=== PATIENT | male | born 1975 | race Caucasian/White ===

== ENCOUNTER 2016-06-19 08:01 | Inpatient (IN) | payer OTHER ==
[~2016-06-19] VITALS: Ht 177.8 cm; Wt 70.5 kg
[2016-06-19] VITALS (8 sets, daily range): BP systolic 109–146; BP diastolic 63–98; PULSE 109–144; RESP 16–26; TEMP 97.7–98.6; O2SAT 95–100
[2016-06-19] MEDS ORDERED: SODIUM CHLOR 0.9% 1000 ML INJ 1,000 ML IV ONE ×2 (08:25→08:55)
[2016-06-19] MEDS ORDERED: SODIUM CHLORIDE 0.9% FLUSH 5 ML FLUSH IVF PRN (08:30)
[2016-06-19 08:32] LABS: BLOOD GAS VENOUS BASE EXCESS -25.7 mmol/L (-2-2); BLOOD GAS VENOUS HCO3 4 mmol/L (22-26); BLOOD GAS VENOUS O2 CONTENT 16.7 Vol % (9.0-17.0); BLOOD GAS VENOUS O2 HGB SAT 71 % (70-76); BLOOD GAS VENOUS PCO2 18 mmHg (44-48); BLOOD GAS VENOUS PO2 49 mmHg (35-40); BLOOD GAS VENOUS pH 6.95 (7.360-7.400); TEMP CORR TO 98.6
[2016-06-19 08:33] LABS: CRITICAL VALUE YES; DRAW SITE I.V.; FIO2 21 %; OXYGEN DEVICE ROOM AIR; STAT YES
--- NOTE | 2016-06-19 08:33 | PD ---
HPI Chief Complaint: Diabetic Time Seen by Provider: 08:17 Travel History International Travel<30 days: No Contact w/Intl Traveler<30days: No Traveled to known affect area: No History of Present Illness HPI The patient is a 41-year-old male who presents to the emergency department for nausea and vomiting. The patient has a 10 year history of insulin-dependent diabetes, normally takes Lantus 40 units daily. The patient has been out of his insulin for the last 5 days, has been unable to see a physician to have his insulin refilled. The patient recently moved to the area and is [facility] to [facility] a [facility] or [facility]. The patient states his symptoms are several days ago nausea and vomiting, he now notes generalized weakness, increased respiratory rate, and generalized fatigue. The patient does have a previous history of DKA. The patient denies any fever, chills, or sweats. Patient also complains of "[place] ". PFSH Past Medical History Diabetes: Yes Patient Takes Glucophage: No Past Surgical History Surgical History: No Previous Surgery Social History Alcohol Use: Yes (6pk beer daily) Tobacco Use: No Substance Use: No Allergies-Medications (Allergen,Severity, Reaction): Coded Allergies: No Known Allergies (Unverified , 06/19/16) Reported Meds & Prescriptions Reported Meds & Active Scripts Active Reported Lantus Inj (Insulin Glargine) 1,000 Unit/10 Ml Vial 40 Units SQ HS Review of Systems Except as stated in HPI: all other systems reviewed are Neg General / Constitutional: No: Fever Cardiovascular: Positive: Tachycardia, No: Chest Pain or Discomfort Respiratory: Positive: Other (increased respiratory rate), No: Shortness of Breath Gastrointestinal: Positive: Nausea, Vomiting, No: Abdominal Pain Musculoskeletal: Positive: Weakness Neurologic: Positive: Weakness Physical Exam Narrative GENERAL: Awake, alert, 41-year-old male appears his stated age and has [place]ul respirations. SKIN: Warm and dry. HEAD: Atraumatic. Normocephalic. EYES: Pupils equal and round. No scleral icterus. No injection or drainage. ENT: No nasal bleeding or discharge. Dry mucous membranes. Ketotic breath. NECK: Trachea midline. No JVD. CARDIOVASCULAR: Regular, tachycardic with a heart rate of 140. RESPIRATORY: Tachypnea with deep inspirations. GASTROINTESTINAL: Abdomen soft, non-tender, nondistended. No rebound tenderness. MUSCULOSKELETAL: No obvious deformities. No clubbing. No cyanosis. No edema. NEUROLOGICAL: Awake and alert. No obvious cranial nerve deficits. Motor grossly within normal limits. Normal speech. PSYCHIATRIC: Appropriate mood and affect; insight and judgment normal. Data Data Last Documented VS Vital Signs Date Time Temp Pulse Resp B/P Pulse Ox O2 Delivery O2 Flow Rate FiO2 06/19/16 09:25 144 24 146/86 100 Room Air 06/19/16 08:04 97.7 Orders Electrocardiogram (06/19/16 08:25) Complete Blood Count With Diff (06/19/16 08:25) Comprehensive Metabolic Panel (06/19/16 08:25) Magnesium (Mg) (06/19/16 08:25) Beta Hydroxybutyrate (Acetone) (06/19/16 08:25) Urinalysis - C+S If Indicated (06/19/16 08:25) Blood Gas Venous (Vbg) (06/19/16 08:25) Blood Glucose (06/19/16 08:25) Blood Glucose (06/19/16 09:25) Ecg Monitoring (06/19/16 08:25) Iv Access Insert/Monitor (06/19/16 08:25) Oximetry (06/19/16 08:25) NPO (06/19/16 08:25) Sodium Chlor 0.9% 1000 Ml Inj (Ns 1000 M (06/19/16 08:25) Sodium Chlor 0.9% 1000 Ml Inj (Ns 1000 M (06/19/16 08:55) Sodium Chloride 0.9% Flush (Ns Flush) (06/19/16 08:30) Transmitter Supervisor / Telemetry PRATEEK.Q8H (06/19/16 09:47) ^ Insert Iv (06/19/16 09:47) Diet Npo (06/19/16 Breakfast) Sodium Chlor 0.9% 1000 Ml Inj (Ns 1000 M (06/19/16 09:47) Dext 5%-Nacl 0.9% 1000 Ml Inj (D5w-Ns 10 (06/19/16 09:47) Insulin Human Regular Inj (Novolin R Inj (06/19/16 10:00) Insulin Regular (Iv Infusion) (Novolin R (06/19/16 10:00) Potassium Chlor 40 Meq Premix (Kcl 40 Me (06/19/16 10:00) Potassium Chlor 40 Meq Premix (Kcl 40 Me (06/19/16 10:00) Potassium Chlor 20 Meq Premix (Kcl 20 Me (06/19/16 10:00) Potassium Chlor 20 Meq Premix (Kcl 20 Me (06/19/16 10:00) Potassium Chlor 20 Meq Premix (Kcl 20 Me (06/19/16 10:00) Potassium Chlor 20 Meq Premix (Kcl 20 Me (06/19/16 10:00) Potassium Chlor 20 Meq Premix (Kcl 20 Me (06/19/16 10:00) Potassium Chlor 20 Meq Premix (Kcl 20 Me (06/19/16 10:00) Sodium Bicarbonate 8.4% Inj (Sodium Bica (06/19/16 10:00) Sodium Bicarbonate 8.4% Inj (Sodium Bica (06/19/16 10:00) Sodium Phosphate Inj (Sodium Phosphate I (06/19/16 10:00) Hemoglobin (Hgb) A1c (06/19/16 09:47) Basic Metabolic Panel (Bmp) (06/19/16 14:47) Basic Metabolic Panel (Bmp) (06/19/16 20:47) Basic Metabolic Panel (Bmp) (06/20/16 02:47) Basic Metabolic Panel (Bmp) (06/20/16 08:47) Magnesium (Mg) (06/19/16 14:47) Magnesium (Mg) (06/19/16 20:47) Magnesium (Mg) (06/20/16 02:47) Magnesium (Mg) (06/20/16 08:47) Phosphorus (Po4) (06/19/16 14:47) Phosphorus (Po4) (06/19/16 20:47) Phosphorus (Po4) (06/20/16 02:47) Phosphorus (Po4) (06/20/16 08:47) Beta Hydroxybutyrate (Acetone) (06/19/16 20:47) Beta Hydroxybutyrate (Acetone) (06/20/16 08:47) Sodium Bicarbonate 8.4% Inj (Sodium Bica (06/19/16 10:00) Admit Order (Ed Use Only) (06/19/16 09:59) Labs Laboratory Tests Test 06/19/16 06/19/16 06/19/16 08:27 08:35 09:15 Blood Gas Puncture Site I.V. Blood Gas Patient Temperature 98.6 Venous Blood pH 6.95 Venous Blood Partial Pressure 18 mmHg CO2 Venous Blood Partial Pressure 49 mmHg O2 Venous Blood HCO3 4 mmol/L Venous Blood Oxygen Saturation 71 % Venous Blood Oxygen Content 16.7 Vol % Venous Blood Base Excess -25.7 mmol/L Oxygen Delivery Device ROOM AIR Blood Gas Inspired Oxygen 21 % White Blood Count 16.5 TH/MM3 Red Blood Count 5.17 MIL/MM3 Hemoglobin 15.8 GM/DL Hematocrit 50.4 % Mean Corpuscular Volume 97.4 FL Mean Corpuscular Hemoglobin 30.5 PG Mean Corpuscular Hemoglobin 31.3 % Concent Red Cell Distribution Width 14.5 % Platelet Count 272 TH/MM3 Mean Platelet Volume 9.8 FL Neutrophils (%) (Auto) 81.4 % Lymphocytes (%) (Auto) 9.9 % Monocytes (%) (Auto) 8.0 % Eosinophils (%) (Auto) 0.1 % Basophils (%) (Auto) 0.6 % Neutrophils # (Auto) 13.4 TH/MM3 Lymphocytes # (Auto) 1.6 TH/MM3 Monocytes # (Auto) 1.3 TH/MM3 Eosinophils # (Auto) 0.0 TH/MM3 Basophils # (Auto) 0.1 TH/MM3 CBC Comment DIFF FINAL Differential Comment Sodium Level 129 MEQ/L Potassium Level 4.9 MEQ/L Chloride Level 90 MEQ/L Carbon Dioxide Level LESS THAN 5.0 MEQ/L Anion Gap 34 MEQ/L Blood Urea Nitrogen 22 MG/DL Creatinine 1.68 MG/DL Estimat Glomerular Filtration 45 ML/MIN Rate Random Glucose 505 MG/DL Calcium Level 8.2 MG/DL Magnesium Level 2.5 MG/DL Total Bilirubin 0.4 MG/DL Aspartate Amino Transf 19 U/L (AST/SGOT) Alanine Aminotransferase 40 U/L (ALT/SGPT) Alkaline Phosphatase 123 U/L Total Protein 7.9 GM/DL Albumin 4.0 GM/DL B-Hydroxybutyrate 16.69 MMOL/L Urine Color LIGHT-YELLOW Urine Turbidity CLEAR Urine pH 5.0 Urine Specific [place] 1.018 Urine Protein 30 mg/dL Urine Glucose (UA) 1000 mg/dL Urine Ketones 150 mg/dL Urine Occult Blood TRACE Urine Nitrite NEG Urine Bilirubin NEG Urine Urobilinogen LESS THAN 2.0 MG/DL Urine Leukocyte Esterase NEG Urine WBC LESS THAN 1 /hpf Urine Squamous Epithelial <1 /hpf Cells Urine Bacteria RARE /hpf Urine Hyaline Casts 1 /lpf Urine Mucus FEW /lpf Microscopic Urinalysis Comment CULT NOT INDICATED MDM Medical Decision Making Medical Screen Exam Complete: Yes Emergency Medical Condition: Yes Medical Record Reviewed: Yes Interpretation(s) VBG reveals pH 6.954, PCO2 18.4, bicarbonate 3.9, base excess - 25.7 EKG reveals sinus tachycardia with a heart rate of 141. Wavy baseline. Differential Diagnosis Differential diagnosis includes diabetic ketoacidosis, hyperosmolar not ketosis , dehydration, electrolyte abnormality, insulin deficiency, noncompliance. Narrative Course IV was established, labs are drawn and sent, and the patient was placed on cardiac telemetry monitoring and continuous pulse oximetry monitoring. EKG was ordered and interpreted. The patient was administered 2 L of IV fluids. Accu- Chek at bedside was 491. VBG and beta hydroxy were sent to lab. The ABG reveals a pH is 6.954 PCO2 of 18.4 and bicarbonate 3.9, consistent with metabolic acidosis, most likely DKA. Patient's anion gap is elevated at 34. Bicarbonate was less than 5, consistent with DKA. The patient was given a bolus of insulin 6 units intravenously and then placed on an insulin drip. The patient was also administered bicarbonate. I discussed the patient with the on- call university administrator, Dr. Corado, who agrees with admission. The patient will be admitted to the intensive care unit. Critical Care Narrative Aggregate critical care time was 40 minutes. Time to perform other separately billable procedures was not included in the critical care time. My time did not include minutes spent treating any other patients simultaneously or on activities that did not directly contribute to the patient's treatment. The services I provided to this patient were to treat and/or prevent clinically significant deterioration that could result in: Dehydration, arrhythmia, diabetic coma, respiratory arrest. I provided critical care services requiring my management, as noted below: Chart data review, documentation time, medication orders and management, vital sign assessments/reviewing monitor data, ordering and reviewing lab tests, ordering and interpreting/reviewing x-rays and diagnostic studies, care of the patient and discussion of the patient with the admitting physicians. Physician Communication Physician Communication I discussed the patient with the on-call university administrator, Dr. Corado, who agrees with admission. Diagnosis Primary Impression: DKA (diabetic ketoacidoses) Qualified Code: E10.10 - Diabetic ketoacidosis without coma associated with type 1 diabetes mellitus Condition: Critical Fox Galeana MD Jun 19, 2016 08:33
[2016-06-19] MEDS ORDERED: LANTUS2P SQ (08:34)
[2016-06-19 08:59] LABS: AUTOMATED NEUTROPHIL # 13.4 TH/MM3 (1.8-7.7); BASOPHIL # 0.1 TH/MM3 (0-0.2); BASOPHIL % 0.6 % (0.0-2.0); EOSINOPHIL % 0.1 % (0.0-4.0); HEMATOCRIT 50.4 % (39.0-51.0); HEMO FLAGS DIFF FINAL; LYMPH % 9.9 % (9.0-44.0); LYMPHOCYTE # 1.6 TH/MM3 (1.0-4.8); MEAN CELL VOLUME 97.4 FL (80.0-100.0); MEAN CORPUSCULAR HEMOGLOBIN 30.5 PG (27.0-34.0); MEAN CORPUSCULAR HGB CONC 31.3 % (32.0-36.0); NEUT % 81.4 % (16.0-70.0); PLATELET COUNT 272 TH/MM3 (150-450); RED BLOOD COUNT 5.17 MIL/MM3 (4.50-5.90); RED CELL DISTRIBUTION WIDTH 14.5 % (11.6-17.2); WHITE BLOOD COUNT 16.5 TH/MM3 (4.0-11.0)
[2016-06-19 09:18] LABS: ANION GAP 34 MEQ/L (5-15)
[2016-06-19 09:29] LABS: ALKALINE PHOSPHATASE 123 U/L (45-117); ALT (GPT) 40 U/L (12-78); AST (GOT) 19 U/L (15-37); BETA-HYDROXYBUTYRATE 16.69 MMOL/L (0.00-0.39); BICARBONATE LESS THAN 5.0 MEQ/L (21.0-32.0); BLOOD UREA NITROGEN 22 MG/DL (7-18); CHLORIDE 90 MEQ/L (98-107); GLOMERULAR FILTRATION RATE 45 ML/MIN (>89); MAGNESIUM 2.5 MG/DL (1.5-2.5); POTASSIUM 4.9 MEQ/L (3.5-5.1); SODIUM (NA) 129 MEQ/L (136-145)
[2016-06-19 09:33] LABS: TOTAL BILIRUBIN ADULT 0.4 MG/DL (0.2-1.0)
[2016-06-19] MEDS ORDERED: SODIUM CHLOR 0.9% 1000 ML INJ 1,000 ML IV SCH ×2 (09:47→10:22)
[2016-06-19] MEDS ORDERED: DEXT 5%-NACL 0.9% 1000 ML INJ 1,000 ML IV SCH (09:47)
[2016-06-19 10:00] LABS: BACTERIA, URINE RARE /hpf; BLOOD, URINE TRACE (NEG); COMMENT (UR) CULT NOT INDICATED; CULTURE IF INDICATED CULT NOT INDICATED; GLUCOSE,URINE 1000 mg/dL (NEG); HYALINE CAST, URINE 1 /lpf (RARE); KETONE, URINE 150 mg/dL (NEG); MUCUS URINE FEW /lpf (OCC); NITRITE,URINE NEG (NEG); SQUAMOUS EPITHELIAL CELL URINE <1 /hpf (0-5); URINE COLOR LIGHT-YELLOW (YELLW/STRAW)
[2016-06-19] MEDS ORDERED: SODIUM BICARBONATE 8.4% SOLN 50 MEQ/50 ML VIAL IV PRN ×4 (10:00→10:30)
[2016-06-19] MEDS ORDERED: POTASSIUM CHLOR 40 MEQ PREMIX 100 ML IV PRN ×4 (10:00→10:30)
[2016-06-19] MEDS ORDERED: INSULIN REGULAR (IV INFUSION) 100 UNITS in SODIUM CHLORIDE 0.9% INJ 99 ML IV SCH (10:00)
[2016-06-19] MEDS ORDERED: SODIUM BICARBONATE 8.4% INJ 50 MEQ/50 ML SYR IV PUSH ONE (10:00)
[2016-06-19] MEDS ORDERED: INSULIN HUMAN REGULAR 1,000 UNITS/10 ML VIAL IV PUSH ONE ×2 (10:00→10:30)
[2016-06-19] MEDS ORDERED: POTASSIUM CHLOR 20 MEQ PREMIX 100 ML IV PRN ×12 (10:00→10:30)
[2016-06-19] MEDS ORDERED: SODIUM PHOSPHATE INJ 15 MMOL in SODIUM CHLORIDE 0.9% INJ 100 ML IV PRN ×2 (10:00→10:30)
[2016-06-19] MEDS ORDERED: SODIUM CHLORIDE 0.9% FLUSH 5 ML FLUSH IV FLUSH PRN (10:30)
[2016-06-19] MEDS ORDERED: ONDANSETRON HCL 4 MG/2 ML VIAL IV PRN (10:30)
[2016-06-19] MEDS ORDERED: CHLORHEXIDINE GLUCONATE 2 % 1 PACK (2 CLOTHS) TOP PRN (10:30)
[2016-06-19] MEDS ORDERED: MISCELLANEOUS NURSING INFORMATION XX SCH ×2 (10:30)
[2016-06-19] MEDS ORDERED: RESP: ALBUTEROL 2.5 MG/IPRATROPIUM 0.5 MG NEB (PRN) INH (10:30)
[2016-06-19] MEDS ORDERED: ACETAMINOPHEN 325 MG TAB PO PRN (10:30)
--- NOTE | 2016-06-19 10:53 | HHI.HP ---
HPI Service Critical Care Medicine Primary Care Physician No Primary Care Physician Admission Diagnosis diabetic ketoacidosis, dehydration, acute renal failure Diagnosis: Travel History International Travel<30 Days: No Contact w/Intl Traveler <30 Da: No Traveled to Known Affected Are: No History of Present Illness The is a 41-year-old male that presented to the ED with a history of nausea and vomiting. 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 The patient did not take his insulin for approximately the last 5 days, has been unable to see a physician to have his insulin refilled. The patient has recently relocated to the [facility], is unable to obtain an appointment at the [place] facility and was scheduled to see his primary care physician tomorrow. The patient states his symptoms are several days ago nausea and vomiting, he now notes generalized weakness, increased respiratory rate, and generalized fatigue. The patient does have a previous history of DKA. Critical care medicine is consulted for management and treatment. History PFSH Past Medical History Diabetes: Yes Patient Takes Glucophage: No Past Surgical History Surgical History: No Previous Surgery Social History Alcohol Use: Yes (6pk beer daily) Tobacco Use: No Substance Use: No Allergies-Medications Allergies-Medications (Allergen,Severity, Reaction): Coded Allergies: No Known Allergies (Unverified , 06/19/16) Reported Meds & Prescriptions Reported Meds & Active Scripts Active Reported Lantus Inj (Insulin Glargine) 1,000 Unit/10 Ml Vial 40 Units SQ HS ROS Review of Systems Except as stated in HPI: all other systems reviewed are Neg General / Constitutional: No: Fever Cardiovascular: Positive: Tachycardia, No: Chest Pain or Discomfort Respiratory: Positive: Other (increased respiratory rate), No: Shortness of Breath Gastrointestinal: Positive: Nausea, Vomiting, No: Abdominal Pain Musculoskeletal: Positive: Weakness Neurologic: Positive: Weakness Physical Exam Vital Signs Vital Signs Date Time Temp Pulse Resp B/P Pulse Ox O2 Delivery O2 Flow Rate FiO2 06/19/16 09:25 144 24 146/86 100 Room Air 06/19/16 08:04 97.7 141 26 139/98 97 Physical Exam GENERAL: This is a well-nourished well-developed male in moderate distress, tachypnea and tachycardic HR 150's SKIN: Warm and dry. HEAD: Atraumatic. Normocephalic. EYES: Pupils equal and round. No scleral icterus. No injection or drainage. ENT: No nasal bleeding or discharge. Mucous membranes uvula midline NECK: Trachea midline. No JVD. CARDIOVASCULAR: Tachycardic, regular rhythm. RESPIRATORY: No accessory muscle use. Clear to auscultation. Breath sounds equal bilaterally. Tachypnea,RR 30's GASTROINTESTINAL: Abdomen soft, non-tender, nondistended. No guarding. Normoactive bowel sounds MUSCULOSKELETAL: Extremities without clubbing, cyanosis, or edema. No obvious deformities. NEUROLOGICAL: Awake and alert. RASS 0. No gross focal/sensory deficits. Follows commands in all 4 extremities. Laboratory Laboratory Tests Test 06/19/16 06/19/16 06/19/16 08:27 08:35 09:15 Blood Gas Puncture Site I.V. Blood Gas Patient Temperature 98.6 Venous Blood pH 6.95 Venous Blood Partial Pressure 18 CO2 Venous Blood Partial Pressure 49 O2 Venous Blood HCO3 4 Venous Blood Oxygen Saturation 71 Venous Blood Oxygen Content 16.7 Venous Blood Base Excess -25.7 Oxygen Delivery Device ROOM AIR Blood Gas Inspired Oxygen 21 White Blood Count 16.5 Red Blood Count 5.17 Hemoglobin 15.8 Hematocrit 50.4 Mean Corpuscular Volume 97.4 Mean Corpuscular Hemoglobin 30.5 Mean Corpuscular Hemoglobin 31.3 Concent Red Cell Distribution Width 14.5 Platelet Count 272 Mean Platelet Volume 9.8 Neutrophils (%) (Auto) 81.4 Lymphocytes (%) (Auto) 9.9 Monocytes (%) (Auto) 8.0 Eosinophils (%) (Auto) 0.1 Basophils (%) (Auto) 0.6 Neutrophils # (Auto) 13.4 Lymphocytes # (Auto) 1.6 Monocytes # (Auto) 1.3 Eosinophils # (Auto) 0.0 Basophils # (Auto) 0.1 CBC Comment DIFF FINAL Differential Comment Sodium Level 129 Potassium Level 4.9 Chloride Level 90 Carbon Dioxide Level LESS THAN 5.0 Anion Gap 34 Blood Urea Nitrogen 22 Creatinine 1.68 Estimat Glomerular Filtration 45 Rate Random Glucose 505 Calcium Level 8.2 Magnesium Level 2.5 Total Bilirubin 0.4 Aspartate Amino Transf 19 (AST/SGOT) Alanine Aminotransferase 40 (ALT/SGPT) Alkaline Phosphatase 123 Total Protein 7.9 Albumin 4.0 B-Hydroxybutyrate 16.69 Urine Color LIGHT-YELLOW Urine Turbidity CLEAR Urine pH 5.0 Urine Specific [place] 1.018 Urine Protein 30 Urine Glucose (UA) 1000 Urine Ketones 150 Urine Occult Blood TRACE Urine Nitrite NEG Urine Bilirubin NEG Urine Urobilinogen LESS THAN 2.0 Urine Leukocyte Esterase NEG Urine WBC LESS THAN 1 Urine Squamous Epithelial <1 Cells Urine Bacteria RARE Urine Hyaline Casts 1 Urine Mucus FEW Microscopic Urinalysis Comment CULT NOT INDICATED Result Diagram: 06/19/1683406/19/16834 Septic Shock Reassessment Lungs: Clear Skin: Warm Peripheral Pulses: Bounding Right Radial Bounding Left Radial Bounding Right Dorsalis Pedis Bounding Left Dorsalis Pedis Capillary Refill: Brisk Assessment and Plan Assessment and Plan Neurologic: Back pain/ Myalgia Noncompliance of medication regimen GCS 15 Acetaminophen 650 mg when necessary Respiratory: Tachypnea secondary to DKA Maintain O2 sat greater than 92% O2 sat currently 100% on room air, will supplement oxygen with a 1-4 L nasal cannula Incentive spirometry while awake Cardiovascular: Sinus tachycardia secondary to hypovolemia secondary to DKA Bolused with 2 L in the ED Bolused with 2 L ICU Telemetry Obtain EKG Renal: Prerenal azotemia secondary to dehydration Creatinine 1.68, BUN 22 No Cummings at this time -- Strict I/Os FEN/GI: Dehydration Maintain nothing by mouth status for now Continue IV 0.9 sodium chloride at 250 cc/hour per DKA protocol Zofran for nausea every 6 hours Protonix IV GI prophylaxis Heme/ID: Leukocytosis WBC 16.5 Obtain blood culture, urine culture Monitor CBC Hemoglobin stable Endocrine: IDDM DKA Begin insulin infusion follow DKA protocol will transition when anion gap closes Supplement potassium per DKA protocol Continue normal saline 250 cc/hr Repeat VBG-sodium bicarbonate per protocol, given 100 mEq in the ED -- SSI Prophylaxis: GI Prophylaxis Protonix DVT Prophylaxis -- SCDs Heparin SQ BID Lines: PIV 's Dispo: This patient remains critically ill with one or more organ systems which are or may become a threat to life. I have spent in excess of 47 minutes discontinuously in the care and management of this patient. This time is exclusive of procedures, and includes, but is not limited to, evaluation of the patient, review of the medical record, discussions with family, consultants, nursing staff, or respiratory therapy, and documentation in the medical record. Code Status Full Discussed Condition With ED RN, patient and patient's significant other Young,Margaret Wall MD Jun 19, 2016 10:53
[2016-06-19] MEDS: SODIUM CHLOR 0.9% 1000 ML INJ 1,000 ML IV SCH ×2 (11:00→12:07)
[2016-06-19] MEDS: HEPARIN SODIUM - SQ 10,000 UNITS/ML VIAL SQ SCH ×2 (11:24→19:00)
[2016-06-19 11:38] LABS: BLOOD GAS VENOUS BASE EXCESS -24.3 mmol/L (-2-2); BLOOD GAS VENOUS HCO3 4 mmol/L (22-26); BLOOD GAS VENOUS O2 CONTENT 16.5 Vol % (9.0-17.0); BLOOD GAS VENOUS O2 HGB SAT 83 % (70-76); BLOOD GAS VENOUS PCO2 15 mmHg (44-48); BLOOD GAS VENOUS PO2 54 mmHg (35-40); BLOOD GAS VENOUS pH 7.08 (7.360-7.400); TEMP CORR TO 98.6
[2016-06-19 11:39] LABS: CRITICAL VALUE YES; DRAW SITE I.V.; FIO2 21 %; OXYGEN DEVICE ROOM AIR; STAT YES
[2016-06-19] MEDS: DEXT 5%-NACL 0.9% 1000 ML INJ 1,000 ML IV SCH (13:06)
[2016-06-19 14:16] LABS: BICARBONATE 7.8 MEQ/L (21.0-32.0); CALCIUM-PROTEIN CORRECTED 7.7 MG/DL (8.5-10.1); POTASSIUM 4.5 MEQ/L (3.5-5.1); TOTAL BILIRUBIN ADULT 0.4 MG/DL (0.2-1.0)
[2016-06-19 15:07] LABS: MAGNESIUM 1.8 MG/DL (1.5-2.5)
[2016-06-19 16:35] LABS: BLOOD GAS VENOUS BASE EXCESS -22.3 mmol/L (-2-2); BLOOD GAS VENOUS HCO3 6 mmol/L (22-26); BLOOD GAS VENOUS O2 CONTENT 14.1 Vol % (9.0-17.0); BLOOD GAS VENOUS O2 HGB SAT 79 % (70-76); BLOOD GAS VENOUS PCO2 19 mmHg (44-48); BLOOD GAS VENOUS PO2 47 mmHg (35-40); BLOOD GAS VENOUS pH 7.11 (7.360-7.400); TEMP CORR TO 98.6
[2016-06-19 16:36] LABS: CRITICAL VALUE YES; DRAW SITE VENOUS LINE; FIO2 21 %; STAT YES
[2016-06-19] MEDS: RESP: ALBUTEROL 2.5 MG/IPRATROPIUM 0.5 MG NEB (SCH) INH ×2 (16:50→21:05)
[2016-06-19] MEDS: INSULIN REGULAR (IV INFUSION) 100 UNITS in SODIUM CHLORIDE 0.9% INJ 99 ML IV SCH (17:55)
[2016-06-19 22:08] LABS: ANION GAP 17 MEQ/L (5-15); BETA-HYDROXYBUTYRATE 6.81 MMOL/L (0.00-0.39); BICARBONATE 9.8 MEQ/L (21.0-32.0); BLOOD UREA NITROGEN 10 MG/DL (7-18); CHLORIDE 111 MEQ/L (98-107); GLOMERULAR FILTRATION RATE 69 ML/MIN (>89); MAGNESIUM 1.8 MG/DL (1.5-2.5); POTASSIUM 3.9 MEQ/L (3.5-5.1); SODIUM (NA) 138 MEQ/L (136-145)
[2016-06-19 22:10] LABS: HEMOGLOBIN A1a 1.4 %; HEMOGLOBIN Ao 77.1 %; HEMOGLOBIN F 1.6 %; HEMOGLOBIN LA1C 2.7 %; HEMOGLOBIN P3 4.9 %
[2016-06-19 22:35] LABS: CALCIUM-PROTEIN CORRECTED 7.7 MG/DL (8.5-10.1)
[2016-06-20] VITALS (11 sets, daily range): BP systolic 94–120; BP diastolic 55–74; PULSE 91–128; RESP 18–22; TEMP 98.2–100; O2SAT 98–100
[2016-06-20] MEDS: CHLORHEXIDINE GLUCONATE 2 % 1 PACK (2 CLOTHS) TOP SCH (04:00)
[2016-06-20 04:12] LABS: BICARBONATE 13.5 MEQ/L (21.0-32.0); MAGNESIUM 1.6 MG/DL (1.5-2.5); POTASSIUM 3.5 MEQ/L (3.5-5.1)
[2016-06-20 04:28] LABS: CALCIUM-PROTEIN CORRECTED 8.1 MG/DL (8.5-10.1)
[2016-06-20] MEDS: RESP: ALBUTEROL 2.5 MG/IPRATROPIUM 0.5 MG NEB (SCH) INH ×4 (04:37→21:04)
[2016-06-20] MEDS: DEXT 5%-NACL 0.9% 1000 ML INJ 1,000 ML IV SCH ×3 (05:21→17:06)
[2016-06-20] MEDS: PANTOPRAZOLE SODIUM 40 MG VIAL IV SCH (09:00)
[2016-06-20 12:10] LABS: BICARBONATE 14.2 MEQ/L (21.0-32.0); MAGNESIUM 1.8 MG/DL (1.5-2.5); POTASSIUM 3.2 MEQ/L (3.5-5.1)
[2016-06-20] MEDS: INSULIN REGULAR (IV INFUSION) 100 UNITS in SODIUM CHLORIDE 0.9% INJ 99 ML IV SCH (12:16)
[2016-06-20] MEDS: SODIUM CHLORIDE 0.9% FLUSH 5 ML FLUSH IV FLUSH SCH (12:17)
[2016-06-20 12:37] LABS: BETA-HYDROXYBUTYRATE 6.56 MMOL/L (0.00-0.39)
[2016-06-20] MEDS ORDERED: POTASSIUM CHLORIDE 25 MEQ EFFERVESCENT TAB PO ONE ×2 (13:30→13:45)
[2016-06-20 13:36] LABS: AUTOMATED NEUTROPHIL # 3.5 TH/MM3 (1.8-7.7); BASOPHIL % 0.5 % (0.0-2.0); EOSINOPHIL % 0.3 % (0.0-4.0); HEMATOCRIT 36.7 % (39.0-51.0); HEMO FLAGS DIFF FINAL; LYMPH % 22.6 % (9.0-44.0); LYMPHOCYTE # 1.2 TH/MM3 (1.0-4.8); MEAN CELL VOLUME 89.7 FL (80.0-100.0); MEAN CORPUSCULAR HEMOGLOBIN 30.2 PG (27.0-34.0); MEAN CORPUSCULAR HGB CONC 33.6 % (32.0-36.0); MONO % 9.1 % (0.0-8.0); NEUT % 67.5 % (16.0-70.0); PLATELET COUNT 137 TH/MM3 (150-450); RED BLOOD COUNT 4.09 MIL/MM3 (4.50-5.90); RED CELL DISTRIBUTION WIDTH 14.3 % (11.6-17.2); WHITE BLOOD COUNT 5.1 TH/MM3 (4.0-11.0)
[2016-06-20 13:53] LABS: MAGNESIUM 1.7 MG/DL (1.5-2.5)
[2016-06-20 14:23] LABS: BLOOD GAS VENOUS BASE EXCESS -9.5 mmol/L (-2-2); BLOOD GAS VENOUS HCO3 14 mmol/L (22-26); BLOOD GAS VENOUS O2 CONTENT 15.3 Vol % (9.0-17.0); BLOOD GAS VENOUS O2 HGB SAT 92 % (70-76); BLOOD GAS VENOUS PCO2 24 mmHg (44-48); BLOOD GAS VENOUS PO2 52 mmHg (35-40); TEMP CORR TO 98.6
[2016-06-20 14:24] LABS: CRITICAL VALUE YES; DRAW SITE VENOUS; FIO2 21 %; STAT YES
--- NOTE | 2016-06-20 14:48 | EKG ---
Date Performed: 06/19/2016 Time Performed: 08:51:31 PTAGE: 41 years EKG: SINUS TACHYCARDIA WITH SHORT MO INTERVAL, POSSIBLE ATRIAL FLUTTER MODERATE ST DEPRESSION AB NORMAL ECG CANNOT RULE OUT ISCHEMIA Clinical correlation is strongly recommended NO PREVIOUS TRACING DOCTOR: Jovan Vázquez Interpretating Date/Time 06/20/2016 14:44:43
--- NOTE | 2016-06-20 16:44 | HHI.CCPN ---
Subjective Remarks/Hospital Course The is a 41-year-old male that presented to the ED with a history of nausea and vomiting. 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 The patient did not take his insulin for approximately the last 5 days, has been unable to see a physician to have his insulin refilled. The patient has recently relocated to the [facility], is unable to obtain an appointment at the [place] facility and was scheduled to see his primary care physician tomorrow. The patient states his symptoms are several days ago nausea and vomiting, he now notes generalized weakness, increased respiratory rate, and generalized fatigue. The patient does have a previous history of DKA. Critical care medicine is consulted for management and treatment. Subjective 06/20: The patient continues on insulin infusion per DKA protocol, anion gap 19. Blood cultures urine cultures are negative at this time. Objective Vital Signs Date Time Temp Pulse Resp B/P Pulse Ox O2 Delivery O2 Flow Rate FiO2 06/20/16 08:24 99 21 06/20/16 08:00 91 06/20/16 08:00 98.7 20 120/66 06/19/16 14:58 Room Air Intake and Output 06/19/16 06/19/16 06/19/16 07:59 15:59 23:59 Intake Total 2137 ml Output Total 1200 ml 1200 ml Balance -1200 ml 937 ml Result Diagram: 06/20/16 1310 06/20/16 1120 Other Results Laboratory Tests Test 06/20/16 14:10 Blood Gas Puncture Site VENOUS Blood Gas Patient Temperature 98.6 Venous Blood pH 7.40 (7.360-7.400) Venous Blood Partial Pressure 24 mmHg (44-48) CO2 Venous Blood Partial Pressure 52 mmHg (35-40) O2 Venous Blood HCO3 14 mmol/L (22-26) Venous Blood Oxygen Saturation 92 % (70-76) Venous Blood Oxygen Content 15.3 Vol % (9.0-17.0) Venous Blood Base Excess -9.5 mmol/L (-2-2) Blood Gas Inspired Oxygen 21 % Objective Remarks GENERAL: This is a well-nourished well-developed male in no apparent distress SKIN: Warm and dry. HEAD: Atraumatic. Normocephalic. EYES: Pupils equal and round. No scleral icterus. No injection or drainage. ENT: No nasal bleeding or discharge. Mucous membranes uvula midline NECK: Trachea midline. No JVD. CARDIOVASCULAR: Normal rate, regular rhythm. RESPIRATORY: No accessory muscle use. Clear to auscultation. Breath sounds equal bilaterally. GASTROINTESTINAL: Abdomen soft, non-tender, nondistended. No guarding. Normoactive bowel sounds MUSCULOSKELETAL: Extremities without clubbing, cyanosis, or edema. No obvious deformities. NEUROLOGICAL: Awake and alert. RASS 0. No gross focal/sensory deficits. Follows commands in all 4 extremities. A/P Assessment and Plan Neurologic: Back pain/ Myalgia Noncompliance of medication regimen GCS 15 Acetaminophen 650 mg when necessary Respiratory: Tachypnea secondary to DKA-resolved Maintain O2 sat greater than 92% O2 sat currently 100% on room air, will supplement oxygen with a 1-4 L nasal cannula Incentive spirometry while awake Cardiovascular: Sinus tachycardia secondary to hypovolemia secondary to DKA-resolved The patient continues on D5 normal saline at 200 cc an hour per DKA protocol Telemetry-normal sinus rhythm EKG-sinus tach Renal: Prerenal azotemia secondary to dehydration-resolved Creatinine 0.99 No Cummings at this time -- Strict I/Os FEN/GI: Dehydration-resolved Maintain nothing by mouth status for now, will resume diet when anion gap closes Continue IV D5NS at 200 cc/hour per DKA protocol Zofran for nausea every 6 hours Protonix IV GI prophylaxis Heme/ID: Leukocytosis-resolved WBC 5.1 F/u blood culture, urine culture Monitor CBC Endocrine: IDDM DKA Begin insulin infusion follow DKA protocol will transition when anion gap closes Supplement potassium per DKA protocol Continue normal saline 250 cc/hr -- SSI Prophylaxis: GI Prophylaxis Protonix DVT Prophylaxis -- SCDs Heparin SQ BID Lines: PIV 's Dispo: Level 3 Discussed with NET TRAINER at bedside, patient and family. Physician Margaret Chin MD Jun 20, 2016 16:43
[2016-06-20] MEDS ORDERED: DEXTROSE 50% IN WATER 50 ML VIAL(D50) IV PUSH PRN (20:45)
[2016-06-20] MEDS ORDERED: GLUCAGON 1 MG/ML VIAL OTHER PRN (20:45)
[2016-06-20] MEDS ORDERED: DC previous DKA orders (HMC 1917) XX ONE (20:45)
[2016-06-20] MEDS ORDERED: DC Insulin drip 2 hrs post basal insulin dose XX ONE (20:45)
[2016-06-20] MEDS ORDERED: INSULIN REGULAR (IV INFUSION) 100 UNITS in SODIUM CHLORIDE 0.9% INJ 99 ML IV SCH ×2 (21:00→22:30)
[2016-06-20] MEDS: INSULIN NovoLIN REGULAR SUPPLEMENTAL SCALE SQ SCH (21:00)
[2016-06-20 23:50] LABS: AUTOMATED NEUTROPHIL # 4.6 TH/MM3 (1.8-7.7); BASOPHIL # 0.1 TH/MM3 (0-0.2); BASOPHIL % 0.8 % (0.0-2.0); EOSINOPHIL % 0.4 % (0.0-4.0); HEMATOCRIT 41.8 % (39.0-51.0); LYMPH % 20.1 % (9.0-44.0); LYMPHOCYTE # 1.3 TH/MM3 (1.0-4.8); MEAN CELL VOLUME 90.6 FL (80.0-100.0); MEAN CORPUSCULAR HEMOGLOBIN 30.3 PG (27.0-34.0); MEAN CORPUSCULAR HGB CONC 33.5 % (32.0-36.0); MONO % 8.9 % (0.0-8.0); NEUT % 69.8 % (16.0-70.0); PLATELET COUNT 129 TH/MM3 (150-450); RED BLOOD COUNT 4.62 MIL/MM3 (4.50-5.90); RED CELL DISTRIBUTION WIDTH 14.6 % (11.6-17.2); WHITE BLOOD COUNT 6.5 TH/MM3 (4.0-11.0)
[2016-06-21] VITALS (10 sets, daily range): BP systolic 104–141; BP diastolic 51–91; PULSE 62–117; RESP 14–20; TEMP 97.2–98.2; O2SAT 96–100
[2016-06-21 00:02] LABS: ALT (GPT) 18 U/L (12-78); ANION GAP 19 MEQ/L (5-15); AST (GOT) 13 U/L (15-37); BICARBONATE 13.3 MEQ/L (21.0-32.0); CHLORIDE 111 MEQ/L (98-107); GLOMERULAR FILTRATION RATE 101 ML/MIN (>89); MAGNESIUM 1.7 MG/DL (1.5-2.5); POTASSIUM 3.8 MEQ/L (3.5-5.1); SODIUM (NA) 143 MEQ/L (136-145)
[2016-06-21 00:04] LABS: ALKALINE PHOSPHATASE 71 U/L (45-117); TOTAL BILIRUBIN ADULT 0.4 MG/DL (0.2-1.0)
[2016-06-21 00:05] LABS: BLOOD UREA NITROGEN 4 MG/DL (7-18); HEMO FLAGS AUTO DIFF
[2016-06-21 00:32] LABS: SCAN/DIFF AUTO DIFF CONFIRMED
[2016-06-21] MEDS: RESP: ALBUTEROL 2.5 MG/IPRATROPIUM 0.5 MG NEB (SCH) INH ×3 (03:18→20:12)
[2016-06-21] MEDS: CHLORHEXIDINE GLUCONATE 2 % 1 PACK (2 CLOTHS) TOP SCH (04:00)
[2016-06-21 05:55] LABS: HEMATOCRIT 36.2 % (39.0-51.0); MEAN CELL VOLUME 90.6 FL (80.0-100.0); MEAN CORPUSCULAR HEMOGLOBIN 30.3 PG (27.0-34.0); MEAN CORPUSCULAR HGB CONC 33.4 % (32.0-36.0); PLATELET COUNT 124 TH/MM3 (150-450); RED CELL DISTRIBUTION WIDTH 14.4 % (11.6-17.2); REVIEW FLAG FINAL; WHITE BLOOD COUNT 4.3 TH/MM3 (4.0-11.0)
[2016-06-21 06:19] LABS: BICARBONATE 14.9 MEQ/L (21.0-32.0); MAGNESIUM 1.7 MG/DL (1.5-2.5); POTASSIUM 3.6 MEQ/L (3.5-5.1)
[2016-06-21] MEDS: INSULIN NovoLIN REGULAR SUPPLEMENTAL SCALE SQ SCH ×4 (06:59→21:00)
[2016-06-21] MEDS: SODIUM CHLORIDE 0.9% FLUSH 5 ML FLUSH IV FLUSH SCH ×3 (06:59→21:00)
[2016-06-21] MEDS ORDERED: MAGNESIUM SULFATE 1 GM PREMIX 100 ML IV ONE (08:15)
--- NOTE | 2016-06-21 08:27 | HHI.CCPN ---
Subjective Remarks/Hospital Course The is a 41-year-old male that presented to the ED with a history of nausea and vomiting. 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 The patient did not take his insulin for approximately the last 5 days, has been unable to see a physician to have his insulin refilled. The patient has recently relocated to the [facility], is unable to obtain an appointment at the OR facility and was scheduled to see his primary care physician tomorrow. The patient states his symptoms are several days ago nausea and vomiting, he now notes generalized weakness, increased respiratory rate, and generalized fatigue. The patient does have a previous history of DKA. Critical care medicine is consulted for management and treatment. Subjective 06/20: The patient continues on insulin infusion per DKA protocol, anion gap 19. Blood cultures urine cultures are negative at this time. 06/21: The patient was transitioned off insulin infusion, anion gap closed. The patient is tolerating ADA diet. Repletion of electrolytes continue. Objective Vital Signs Date Time Temp Pulse Resp B/P Pulse Ox O2 Delivery O2 Flow Rate FiO2 06/21/16 06:00 104 06/21/16 04:00 98.2 16 110/66 98 06/20/16 21:04 21 06/19/16 14:58 Room Air Intake and Output 06/20/16 06/20/16 06/21/16 08:00 16:00 00:00 Intake Total 1224 ml 1186 ml 1699 ml Output Total 500 ml 675 ml 500 ml Balance 724 ml 511 ml 1199 ml Result Diagram: 06/21/16 0528 06/21/16 0528 Other Results Laboratory Tests Test 06/20/16 14:10 Blood Gas Puncture Site VENOUS Blood Gas Patient Temperature 98.6 Venous Blood pH 7.40 (7.360-7.400) Venous Blood Partial Pressure 24 mmHg (44-48) CO2 Venous Blood Partial Pressure 52 mmHg (35-40) O2 Venous Blood HCO3 14 mmol/L (22-26) Venous Blood Oxygen Saturation 92 % (70-76) Venous Blood Oxygen Content 15.3 Vol % (9.0-17.0) Venous Blood Base Excess -9.5 mmol/L (-2-2) Blood Gas Inspired Oxygen 21 % Objective Remarks GENERAL: This is a well-nourished well-developed male in no apparent distress SKIN: Warm and dry. HEAD: Atraumatic. Normocephalic. EYES: Pupils equal and round. No scleral icterus. No injection or drainage. ENT: No nasal bleeding or discharge. Mucous membranes uvula midline NECK: Trachea midline. No JVD. CARDIOVASCULAR: Normal rate, regular rhythm. RESPIRATORY: No accessory muscle use. Clear to auscultation. Breath sounds equal bilaterally. GASTROINTESTINAL: Abdomen soft, non-tender, nondistended. No guarding. Normoactive bowel sounds MUSCULOSKELETAL: Extremities without clubbing, cyanosis, or edema. No obvious deformities. NEUROLOGICAL: Awake and alert. RASS 0. No gross focal/sensory deficits. Follows commands in all 4 extremities. A/P Assessment and Plan Neurologic: Back pain/ Myalgia Noncompliance of medication regimen Headache GCS 15 Acetaminophen 650 mg when necessary Will add [place] 5/325 every 6 when necessary Respiratory: Tachypnea secondary to DKA-resolved Maintain O2 sat greater than 92% O2 sat currently 100% on room air Incentive spirometry while awake Cardiovascular: Sinus tachycardia secondary to hypovolemia secondary to DKA-resolved Maintain MAP greater than 65mmHG Telemetry-normal sinus rhythm Renal: Prerenal azotemia secondary to dehydration-resolved Creatinine 0.9 No Cummings at this time -- Strict I/Os FEN/GI: Dehydration-resolved Anion gap [id number] ADA diet initiated Continue IV NS at 100 cc/hour, will Hep-Lock with toleration of by mouth diet Zofran for nausea every 6 hours Protonix IV GI prophylaxis Heme/ID: Leukocytosis-resolved WBC 5.1 F/u blood culture, urine culture-NGTD Monitor CBC Endocrine: IDDM DKA-resolved Levemir twice a day Repletion of magnesium and potassium phosphate Continue normal saline 100 cc/hr, until confirmed toleration of diet MSK: PT evaluation and treat Out of bed to chair -- SSI Prophylaxis: GI Prophylaxis Protonix DVT Prophylaxis -- SCDs Heparin SQ BID Lines: PIV 's Dispo: Level 2, will transfer to hospitalist in a.m., and transfer to medical surgical floor Discussed with DOCTOR OF NAPRAPATHY at bedside, patient and family. Physician Margaret Chin MD Jun 21, 2016 08:26
[2016-06-21] MEDS ORDERED: INSULIN DETEMIR 100 UNITS/ML VIAL SQ SCH ×2 (09:00→22:15)
[2016-06-21] MEDS: PANTOPRAZOLE SODIUM 40 MG VIAL IV SCH (09:05)
[2016-06-21] MEDS ORDERED: POTASSIUM PHOSPHATE INJ 30 MMOL in SODIUM CHLOR 0.9% 250 ML INJ 250 ML IV ONE (10:00)
[2016-06-21] MEDS: HEPARIN SODIUM - SQ 10,000 UNITS/ML VIAL SQ SCH (19:11)
[2016-06-22] VITALS: BP 132/82; PULSE 64; RESP 18; TEMP 97.4; O2SAT 99
[2016-06-22] MEDS: RESP: ALBUTEROL 2.5 MG/IPRATROPIUM 0.5 MG NEB (SCH) INH ×4 (03:41→21:11)
[2016-06-22] MEDS: CHLORHEXIDINE GLUCONATE 2 % 1 PACK (2 CLOTHS) TOP SCH (04:00)
[2016-06-22] MEDS: HEPARIN SODIUM - SQ 10,000 UNITS/ML VIAL SQ SCH ×2 (04:47→12:48)
[2016-06-22] MEDS: INSULIN NovoLIN REGULAR SUPPLEMENTAL SCALE SQ SCH ×4 (04:57→20:56)
[2016-06-22] MEDS: SODIUM CHLORIDE 0.9% FLUSH 5 ML FLUSH IV FLUSH SCH ×2 (08:26→20:56)
[2016-06-22] MEDS: PANTOPRAZOLE SODIUM 40 MG VIAL IV SCH (08:27)
[2016-06-22 08:53] VITALS: BP 128/87; PULSE 70; RESP 18; TEMP 96.7; O2SAT 98
[2016-06-22 09:02] LABS: BICARBONATE 23.5 MEQ/L (21.0-32.0); MAGNESIUM 1.9 MG/DL (1.5-2.5); POTASSIUM 3.2 MEQ/L (3.5-5.1)
[2016-06-22 09:50] VITALS: O2SAT 98
[2016-06-22 12:30] VITALS: BP 131/83; PULSE 77; RESP 18; TEMP 96.3; O2SAT 100
[2016-06-22 16:00] VITALS: BP 146/89; PULSE 84; RESP 18; TEMP 97.2; O2SAT 98
--- NOTE | 2016-06-22 17:23 | HHI.PR ---
Subjective Remarks Follow-up for DKA. Patient reports feeling much better today. Denies any further nausea/vomiting/abdominal pain. Tolerating oral intake. Blood sugars were fairly well controlled until this afternoon, now in the 400s. The patient states he hates the hospital food and his girlfriend brought him a sandwich from [employer] for lunch. Patient states he has been out of his Lantus for over a week now, and will need a refill at discharge. He states normally with his Lantus 40 units at bedtime his blood sugars are fairly well controlled in the upper 100s. He is requesting his Heparin injections to be discontinued, he has been ambulating the hallways frequently. He has no other medical complaints at this time. Objective Vitals Vital Signs Date Time Temp Pulse Resp B/P Pulse Ox O2 Delivery O2 Flow Rate FiO2 06/22/16 12:30 96.3 77 18 131/83 100 06/22/16 09:50 98 21 06/22/16 08:53 96.7 70 18 128/87 98 06/22/16 00:00 97.4 64 18 132/82 99 06/21/16 20:00 97.2 66 20 141/85 100 I/O 06/21/16 06/21/16 06/21/16 06/22/16 06/22/16 06/22/16 07:00 15:00 23:00 07:00 15:00 23:00 Intake Total 1380 ml 2316 ml Output Total 800 ml Balance 580 ml 2316 ml Intake Oral 100 ml 480 ml IV Total 1280 ml 1836 ml Output Urine Total 800 ml # Voids 2 3 # Bowel Movements 2 Result Diagram: 06/21/16 0528 06/22/16 0739 Objective Remarks GENERAL: Well-nourished, well-developed middle aged male patient in [facility]. SKIN: Warm and dry. No rash. HEENT: Normocephalic. Atraumatic. Pupils equal and round. No scleral icterus. No injection or drainage. Mucous membranes pink and moist. NECK: Supple. Trachea midline. CARDIOVASCULAR: Regular rate and rhythm. S1, S2 noted. No murmur appreciated. RESPIRATORY: No accessory muscle use. Clear to auscultation. Breath sounds equal bilaterally. GASTROINTESTINAL: Abdomen soft, non-tender, nondistended. Normoactive bowel sounds x4. MUSCULOSKELETAL: No obvious deformities. Extremities without clubbing, cyanosis , or edema. NEUROLOGICAL: Awake and alert. No obvious cranial nerve deficits. Motor grossly within normal limits. Normal speech. PSYCHIATRIC: Appropriate mood and affect; insight and judgment normal. Medications and IVs Current Medications Medications (Trade) Dose Ordered Sig/Robin Route Start Time Stop Time Status Last Admin Miscellaneous Information 1 Q361D XX 06/19/16 10:30 (Chlorhexidine 2% Cloth) 3 pack Taper DAILY@04 TOP 06/20/16 04:00 06/16/17 03:59 (Chlorhexidine 2% Cloth) 3 pack UNSCH PRN TOP 06/19/16 10:30 (NS Flush) 2 ml UNSCH PRN IV FLUSH 06/19/16 10:30 06/22/16 00:48 (NS Flush) 2 ml BID IV FLUSH 06/19/16 21:00 06/22/16 08:26 (Tylenol) 650 mg Q6H PRN PO 06/19/16 10:30 06/21/16 06:58 (Protonix Inj) 40 mg DAILY IV 06/20/16 09:00 06/22/16 08:27 (Zofran Inj) 4 mg Q6H PRN IV 06/19/16 10:30 (Heparin Inj) 5,000 units Q8H SQ 06/19/16 11:00 06/22/16 12:48 Miscellaneous Information 1 Q361D XX 06/19/16 10:30 (D50w (Vial) Inj) 25 ml UNSCH PRN IV PUSH 06/20/16 20:45 (Glucagon Inj) 1 mg UNSCH PRN OTHER 06/20/16 20:45 (Levemir Inj) 40 units HS SQ 06/22/16 21:00 Urinary Catheter: No Vascular Central Line Catheter: No A/P Problem List: (1) DKA (diabetic ketoacidoses) ICD Code: E13.10 Status: Acute Assessment and Plan 41-year-old male with history of insulin dependent diabetes presents with: DKA: Patient initially admitted to the [facility]opathic medicine [facility] 06/19 with blood glucose 505, metabolic anion gap acidosis. S/p DKA protocol. Acidosis resolved. Transitioned out of ICU and to hospitalists today 06/22. Blood sugar is much better controlled. Monitor Accu-Cheks and cover with SSI. Hemoglobin A1c 11.1. Restart patient's long-acting insulin, 40u at bedtime, will need Rx at discharge. NO: Cr 1.68 upon arrival, no previous labs to compare. Status post IV fluid boluses. BMP much improved, creatinine 0.97. Resolved. Leukocytosis: WBC 16K upon arrival, likely reactive secondary to nausea/ vomiting. Given IVF. Leukocytosis resolved. DVT prophylaxis: On heparin, however will discontinue per patient's request as he is now ambulatory. Discussed with Dr. Arevalo. Discharge Planning Likely discharge tomorrow if BG better controlled. Problem Qualifiers (1) DKA (diabetic ketoacidoses): Qualified Code: E10.10 - Diabetic ketoacidosis without coma associated with type 1 diabetes mellitus Irma Reese PA-C Jun 22, 2016 5:23 pm
[2016-06-22 20:00] VITALS: BP 123/83; PULSE 65; RESP 24; TEMP 97; O2SAT 99
[2016-06-22] MEDS ORDERED: INSULIN DETEMIR 100 UNITS/ML VIAL SQ SCH (21:00)
[2016-06-23] VITALS: BP 138/92; PULSE 62; RESP 22; TEMP 97.9; O2SAT 99
[2016-06-23] MEDS: CHLORHEXIDINE GLUCONATE 2 % 1 PACK (2 CLOTHS) TOP SCH (04:00)
[2016-06-23] MEDS: RESP: ALBUTEROL 2.5 MG/IPRATROPIUM 0.5 MG NEB (SCH) INH ×2 (04:38→10:00)
[2016-06-23] MEDS: INSULIN NovoLIN REGULAR SUPPLEMENTAL SCALE SQ SCH ×2 (06:31→11:32)
[2016-06-23 08:00] VITALS: BP 153/89; PULSE 65; RESP 16; TEMP 96.9; O2SAT 98
[2016-06-23] MEDS: SODIUM CHLORIDE 0.9% FLUSH 5 ML FLUSH IV FLUSH SCH (09:25)
[2016-06-23] MEDS: PANTOPRAZOLE SODIUM 40 MG VIAL IV SCH (09:25)
[2016-06-23] MEDS ORDERED: LANTUS2P SQ (10:20)
--- NOTE | 2016-06-23 10:46 | HHI.DS ---
Discharge Summary Admission Date Jun 19, 2016 at 10:00 Discharge Date: Jun 23, 2016 Admitting Diagnosis diabetic ketoacidosis, dehydration, acute renal failure (1) DKA (diabetic ketoacidoses) ICD Code: E13.10 Procedures None Brief History - From Admission The is a 41-year-old male that presented to the ED with a history of nausea and vomiting. 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 The patient did not take his insulin for approximately the last 5 days, has been unable to see a physician to have his insulin refilled. The patient has recently relocated to the [facility], is unable to obtain an appointment at the [place] facility and was scheduled to see his primary care physician tomorrow. The patient states his symptoms are several days ago nausea and vomiting, he now notes generalized weakness, increased respiratory rate, and generalized fatigue. The patient does have a previous history of DKA. Critical care medicine is consulted for management and treatment. History PFSH Past Medical History Diabetes: Yes Patient Takes Glucophage: No Past Surgical History Surgical History: No Previous Surgery Social History Alcohol Use: Yes (6pk beer daily) Tobacco Use: No Substance Use: No Allergies-Medications Allergies-Medications (Allergen,Severity, Reaction): Coded Allergies: No Known Allergies (Unverified , 06/19/16) Reported Meds & Prescriptions Reported Meds & Active Scripts Active Reported Lantus Inj (Insulin Glargine) 1,000 Unit/10 Ml Vial 40 Units SQ HS ROS Review of Systems Except as stated in HPI: all other systems reviewed are Neg General / Constitutional: No: Fever Cardiovascular: Positive: Tachycardia, No: Chest Pain or Discomfort Respiratory: Positive: Other (increased respiratory rate), No: Shortness of Breath Gastrointestinal: Positive: Nausea, Vomiting, No: Abdominal Pain Musculoskeletal: Positive: Weakness Neurologic: Positive: Weakness CBC/BMP: 06/21/16 0528 06/22/16 0739 Significant Findings Laboratory Tests Test 06/20/16 06/20/16 06/20/16 06/20/16 11:20 13:10 13:17 14:10 Potassium Level 3.2 MEQ/L (3.5-5.1) Chloride Level 108 MEQ/L (98-107) Carbon Dioxide Level 14.2 MEQ/L (21.0-32.0) Anion Gap 19 MEQ/L (5-15) Blood Urea Nitrogen 6 MG/DL (7-18) Estimat Glomerular Filtration 83 ML/MIN (>89) Rate Random Glucose 192 MG/DL (74-106) Calcium Level 8.0 MG/DL (8.5-10.1) Phosphorus Level 1.8 MG/DL 0.7 MG/DL (2.5-4.9) (2.5-4.9) B-Hydroxybutyrate 6.56 MMOL/L (0.00-0.39) Red Blood Count 4.09 MIL/MM3 (4.50-5.90) Hemoglobin 12.4 GM/DL (13.0-17.0) Hematocrit 36.7 % (39.0-51.0) Platelet Count 137 TH/MM3 (150-450) Monocytes (%) (Auto) 9.1 % (0.0-8.0) Venous Blood Partial Pressure 24 mmHg (44-48) CO2 Venous Blood Partial Pressure 52 mmHg (35-40) O2 Venous Blood HCO3 14 mmol/L (22-26) Venous Blood Oxygen Saturation 92 % (70-76) Venous Blood Base Excess -9.5 mmol/L (-2-2) Test 06/20/16 06/21/16 06/22/16 22:47 05:28 07:39 Platelet Count 129 TH/MM3 124 TH/MM3 (150-450) (150-450) Monocytes (%) (Auto) 8.9 % (0.0-8.0) Chloride Level 111 MEQ/L 112 MEQ/L 108 MEQ/L (98-107) (98-107) (98-107) Carbon Dioxide Level 13.3 MEQ/L 14.9 MEQ/L (21.0-32.0) (21.0-32.0) Anion Gap 19 MEQ/L (5-15) Blood Urea Nitrogen 4 MG/DL (7-18) 3 MG/DL (7-18) 6 MG/DL (7-18) Random Glucose 227 MG/DL 292 MG/DL 190 MG/DL (74-106) (74-106) (74-106) Calcium Level 8.0 MG/DL 7.5 MG/DL 8.0 MG/DL (8.5-10.1) (8.5-10.1) (8.5-10.1) Phosphorus Level 1.3 MG/DL 1.6 MG/DL 2.0 MG/DL (2.5-4.9) (2.5-4.9) (2.5-4.9) Aspartate Amino Transf 13 U/L (15-37) (AST/SGOT) Total Protein 5.5 GM/DL (6.4-8.2) Albumin 2.9 GM/DL (3.4-5.0) Red Blood Count 4.00 MIL/MM3 (4.50-5.90) Hemoglobin 12.1 GM/DL (13.0-17.0) Hematocrit 36.2 % (39.0-51.0) Estimat Glomerular Filtration 87 ML/MIN (>89) Rate Potassium Level 3.2 MEQ/L (3.5-5.1) PE at Discharge GENERAL: Well-nourished, well-developed middle aged male patient in [facility]. SKIN: Warm and dry. No rash. HEENT: Normocephalic. Atraumatic. Pupils equal and round. No scleral icterus. No injection or drainage. Mucous membranes pink and moist. NECK: Supple. Trachea midline. CARDIOVASCULAR: Regular rate and rhythm. S1, S2 noted. No murmur appreciated. RESPIRATORY: No accessory muscle use. Clear to auscultation. Breath sounds equal bilaterally. GASTROINTESTINAL: Abdomen soft, non-tender, nondistended. Normoactive bowel sounds x4. MUSCULOSKELETAL: No obvious deformities. Extremities without clubbing, cyanosis , or edema. NEUROLOGICAL: Awake and alert. No obvious cranial nerve deficits. Motor grossly within normal limits. Normal speech. PSYCHIATRIC: Appropriate mood and affect; insight and judgment normal. Pt update on day of discharge No complaints, no hypoglycemia, mildly low sugar this morning but not really hypoglycemic. Asymptomatic. Patient also doesn't like the foot in the hospital. Hospital Course This is a 41-year-old male with history of insulin dependent diabetes presents with admitted initiated ICU with DKA. Patient was placed in a DKA protocol. DKA precipitated by noncompliance, patient just moved here and ran out of insulin. Hemoglobin A1c 11.1. After several days, DKA resolved, blood glucose stable, home Lantus was started. Patient also acute renal failure which resolved with volume resuscitation. Patient will be discharged with a prescription for Lantus and will follow up with his primary care physician in 2- 3 weeks. Pt Condition on Discharge: Good Discharge Disposition: Discharge Home Discharge Time: > 30 minutes Discharge Instructions DIET: Follow Instructions for: Diabetic Diet Activities you can perform: Regular-No Restrictions Follow up Referrals: PCP Follow-up - 2 Weeks Continued Medications: Insulin Glargine Inj (Lantus Inj) 1,000 Unit/10 Ml Vial 40 UNITS SQ HS Blood Sugar Management #1 Ref 0 BOX (This prescription has been renewed) Viv Arevalo MD Jun 23, 2016 10:46
[2016-06-28] MEDS ORDERED: INSU1MIS15 ×2 (09:53→09:55)
== END 2016-06-23 13:58 | disposition home or self-care (01) | DRG 638 ==
LOC: NEPE 08:01 → NEDA 10:00 → HIMN 15:18 → N05B 06-21 11:31
PROVIDERS: ADMIT Hospitalist; ATTEND Hospitalist
DX: E10.10 Type 1 diabetes mellitus with ketoacidosis without coma (principal); N17.9 Acute kidney failure, unspecified; E86.0 Dehydration; M79.1 Myalgia; M54.9 Dorsalgia, unspecified; D72.829 Elevated white blood cell count, unspecified; Z91.14 Patient's other noncompliance with medication regimen; Z79.4 Long term (current) use of insulin
CPT/HCPCS: 80048; 80053; 81001; 82010; 82805; 82948; 83036; 83605; 83735; 84100; 84155; 85025; 85027; 87040; 87086; 87641; 93005; 94640; 94664; 96360; C9113; J1644; J1815; J1817; J3475; J3480; J7030; J7042; J7050